=== PATIENT | female | born 1980 | race Caucasian/White ===

== ENCOUNTER 2016-06-20 21:01 | Emergency (ER) | payer SELFPAY ==
[2016-06-20 21:23] VITALS: O2SAT 100
[2016-06-20 21:45] LABS: RBC URINE 6 /hpf (0-3); URINE BACTERIA MOD (<OCC); URINE BILIRUBIN NEGATIVE (NEGATIVE); URINE BLOOD NEGATIVE (NEGATIVE); URINE COLOR Yellow (YELLOW); URINE GLUCOSE (UA) NORMAL (Normal); URINE KETONE 2+ mg/dL (NEGATIVE); URINE LEUKOCYTE ESTERASE 3+ Leu/uL (Negative); URINE PROTEIN 1+ mg/dL (NEGATIVE); URINE UROBILINOGEN NORMAL mg/dL (0.2-1.0); WBC URINE 362 /hpf (0-5)
[2016-06-20] MEDS ORDERED: Sodium Chloride 0.9% 1,000 ML IV ONE (21:49)
[2016-06-20] MEDS ORDERED: Sodium Chloride 0.9% 1,000 ML ONE (21:56)
[2016-06-20 22:02] LABS: BASO % 0.4 % (0.0-2.0); HEMATOCRIT 37.3 % (34.0-47.0); LYMPH # 0.7 K/uL (1.0-4.3); LYMPH % 15.9 % (20.0-40.0); MEAN CORPUSCULAR HEMOGLOBIN 24.6 pg (27.0-31.0); MEAN PLATELET VOLUME 10.1 fL (7.2-11.7); MONO # 0.2 K/uL (0.0-0.8); MONO % 3.9 % (0.0-10.0); RED CELL DISTRIBUTION WIDTH 14.3 % (11.5-14.5); WHITE BLOOD COUNT 4.5 K/uL (4.8-10.8)
[2016-06-20 22:09] LABS: CHLORIDE 101 mmol/L (98-107); POTASSIUM 3.8 mmol/L (3.6-5.2); SODIUM 140 mmol/L (132-148)
[2016-06-20 22:11] LABS: AST/SGOT 153 U/L (14-36); BILIRUBIN,TOTAL 0.2 mg/dL (0.2-1.3); CARBON DIOXIDE 18 mmol/L (22-30); GFR AFRICAN-AMERICAN > 60
[2016-06-20 22:12] LABS: ALB/GLOB RATIO 1.2 (1.0-2.1); ALKALINE PHOSPHATASE 68 U/L (38-126); ALT/SGPT 104 U/L (9-52); BLOOD UREA NITROGEN 11 mg/dL (7-17); CALCIUM 8.5 mg/dl (8.6-10.4); GLUCOSE,RANDOM 118 mg/dL (65-105)
[2016-06-20] MEDS ORDERED: cefTRIAXone IV 1 gm in Dextros 50 ML IV ONE (22:30)
[2016-06-20] MEDS ORDERED: cefTRIAXone IV 1 gm in Dextros 50 ML IVPB ONE (23:04)
[2016-06-20] MEDS ORDERED: Dexamethasone 4 mg/1 ml IM STA (23:26)
--- NOTE | 2016-06-20 23:29 | C.PDOC ---
History Of Present Illness 35 year old female presents the to the ER with complaints of intermittent fever , body aches, sore throat, dysuria, nausea, and vomiting for the past 3 days. Patient denies chest pain, shortness of breath, abdominal pain, cough, rhinorrhea, diarrhea. Time Seen by Provider: 06/20/16 21:40 Chief Complaint (Nursing): GI Problem History Per: Patient History/Exam Limitations: no limitations Onset/Duration Of Symptoms: Hrs (3), Intermittent Episodes Current Symptoms Are (Timing): Still Present Past Medical History Reviewed: Historical Data, Nursing Documentation, Vital Signs Vital Signs: Last Vital Signs Temp 99 F 06/21/16 00:18 Pulse 100 H 06/21/16 00:18 Resp 20 06/21/16 00:18 BP 103/59 L 06/21/16 00:18 Pulse Ox 100 06/21/16 00:38 - Medical History PMH: No Chronic Diseases Family History: States: No Known Family Hx - Social History Hx Alcohol Use: No Hx Substance Use: No Review Of Systems Except As Marked, All Systems Reviewed And Found Negative. Constitutional: Positive for: Fever ENT: Positive for: Throat Pain (Sore) Gastrointestinal: Positive for: Nausea, Vomiting. Negative for: Abdominal Pain , Diarrhea Genitourinary: Positive for: Dysuria. Negative for: Hematuria, Vaginal Discharge, Vaginal Bleeding Musculoskeletal: Positive for: Other (Body aches) Physical Exam - Physical Exam Appears: Well, Non-toxic, Other (Uncomfortable appearing ) Skin: Normal Color, Warm, Dry Head: Normacephalic Oral Mucosa: Moist Throat: Other (Tonsils swollen and erythemous) Cardiovascular: Rhythm Regular Respiratory: Normal Breath Sounds, No Rales, No Rhonchi, No Wheezing Gastrointestinal/Abdominal: Normal Exam, Bowel Sounds, Soft, No Tenderness, No Distention, No Guarding, No Other ((-) Yoon's, (-) McBurney's) Back: No CVA Tenderness Neurological/Psych: Oriented x3 ED Course And Treatment - Laboratory Results Result Diagrams: 06/20/16 21:55 06/20/16 21:55 O2 Sat by Pulse Oximetry: 100 (Room air) Pulse Ox Interpretation: Normal Progress Note: Blood work, UA, Upreg, influenza swab ordered and reviewed. Patient given IV NS bolus, IV toradol and IV zofran. UA shows UTI, and throat exam concerning for pharyngitis/tonsolitis. Patient given IM decadron for tonsillar swelling, and PO Keflex to cover for pharyngitis and UTI. Reevaluation Time: 00:00 Reassessment Condition: Improved (Patient resting comfortably and states she feels better. She was given Rxs for Keflex, Naprosyn and Zofran, and instructed to follow up with PMD in 1-2 days. She understands she should return to ED if symptoms worsen.) Disposition Counseled Patient/Family Regarding: Studies Performed, Diagnosis, Need For Followup, Rx Given - Disposition Referrals: Cole Matthews MD [Medical Doctor] - Disposition: HOME/ ROUTINE Disposition Time: 00:00 Condition: STABLE Additional Instructions: FOLLOW UP WITH YOUR DOCTOR/CLINIC IN 1-2 DAYS DRINK PLENTY OF FLUIDS USE MEDICATIONS DIRECTED RETURN TO ER IF SYMPTOMS WORSEN Prescriptions: Cephalexin [Keflex] 500 mg PO BID #14 capsule Naproxen [Naprosyn Tab] 375 mg PO BID PRN #15 tab PRN Reason: pain Ondansetron [Zofran Odt] 4 mg PO Q8 PRN #10 odt PRN Reason: Nausea/Vomiting Instructions: Urinary Tract Infection in Women (ED), Pharyngitis (ED), Acute Nausea and Vomiting (ED) Forms: Accompanied To ED By: Print Language: WELSH - POA Present On Arrival: None - Clinical Impression Clinical Impression: Pharyngitis, UTI (urinary tract infection), Nausea & vomiting - Scribe Statement The provider has reviewed the documentation as recorded by the Leidy Foreman All medical record entries made by the Leiyd were at my direction and personally dictated by me. I have reviewed the chart and agree that the record accurately reflects my personal performance of the history, physical exam, medical decision making, and the department course for this patient. I have also personally directed, reviewed, and agree with the discharge instructions and disposition.
[2016-06-20] MEDS ORDERED: Dexamethasone 4 mg/1 ml ONE (23:31)
[2016-06-21 00:21] VITALS: BP 103/59; PULSE 100; RESP 20; TEMP 99
== END 2016-06-21 00:21 | disposition home or self-care (01) ==
LOC: C.ER 21:01
DX: J02.9 Acute pharyngitis, unspecified (principal); N39.0 Urinary tract infection, site not specified
CPT/HCPCS: 80053; 81001; 83690; 84703; 85025; 87040; 87086; 87804; 96361; 96365; 96372; 96375; 99285; J0696; J1100; J1885; J2405; J7040